=== PATIENT | male | born 1960 | race Caucasian/White ===

== ENCOUNTER 2021-01-17 15:43 | Outpatient (CLI) | payer MEDICARE, MEDICAID ==
[~2021-01-17 15:43] MED LIST: AMPH15TA2 PO; BACL10TA PO; BUPR1PAT TOP; DULO30CA52 PO; FLUT100D2 INH; FLUT1AER INH; GABA-532 PO; HYDR-4353 PO; MELO-102 PO; TRAZ-256 PO
== END 2021-01-17 23:59 | disposition home or self-care (01) ==
LOC: RT 15:43
PROVIDERS: ATTEND Internal Medicine Cardiovascular Disease
DX: R06.09 Other forms of dyspnea (principal)
CPT/HCPCS: 94010

== ENCOUNTER 2021-02-25 06:37 | Inpatient (IN) | payer MEDICARE, MEDICAID ==
[~2021-02-25] VITALS: Ht 182.9 cm; Wt 90.9 kg
[2021-02-25 07:34] LABS: BASOPHILS # (AUTO) 0.1 X10'3 (0-0.2); BASOPHILS % (AUTO) 0.9 % (0-1); EOSINOPHILS # (AUTO) 0.3 X10'3 (0-0.9); EOSINOPHILS % (AUTO) 2.5 % (0-6); HEMATOCRIT 43.5 % (42.0-52.0); LYMPHOCYTES # (AUTO) 2.3 X10'3 (1.1-4.8); LYMPHOCYTES % (AUTO) 19.6 % (21-51); MEAN CORPUSCULAR HEMOGLOBIN 29.7 PG (27.0-31.0); MEAN CORPUSCULAR HGB CONC 34.4 g/dL (33.0-36.5); MEAN CORPUSCULAR VOLUME 86.3 FL (78-98); MEAN PLATELET VOLUME 7.4 FL (7.4-10.4); MONOCYTES # (AUTO) 1.5 X10'3 (0-0.9); MONOCYTES % (AUTO) 12.4 % (2-12); NEUTROPHILS # (AUTO) 7.6 X10'3 (1.8-7.7); NEUTROPHILS % (AUTO) 64.6 % (42-75); PLATELET COUNT 391 X10'3 (140-440); RED BLOOD COUNT 5.04 X10'6 (4.70-6.10); RED CELL DISTRIBUTION WIDTH 13.1 % (11.5-14.5); WHITE BLOOD COUNT 11.8 X10'3 (4.5-11.0)
[2021-02-25 07:47] LABS: D-DIMER 1.02 MG/L FEU (0-0.50)
[2021-02-25 07:56] LABS: ALANINE AMINOTRANSFERASE 40 U/L (12-78); ALBUMIN 3.8 G/DL (3.4-5.0); ALBUMIN/GLOBULIN RATIO 1.2 (1.1-1.5); ALKALINE PHOSPHATASE 78 IU/L (46-116); ANION GAP 10 (8-16); ASPARTATE AMINO TRANSFERASE 38 U/L (10-37); BILIRUBIN,TOTAL 0.5 MG/DL (0.1-1.0); BLOOD UREA NITROGEN 14 MG/DL (7-18); BUN/CREATININE RATIO 15.1 (5.4-32.0); CALCIUM 8.7 MG/DL (8.5-10.1); CHLORIDE 101 MMOL/L (99-107); CREATININE 0.93 MG/DL (0.60-1.10); GLUCOSE 116 MG/DL (70-104); SODIUM 135 MMOL/L (135-145); TOTAL CARBON DIOXIDE 24.3 MMOL/L (24-32); TOTAL PROTEIN 7.1 G/DL (6.4-8.2); eGFR 83 ML/MIN
--- NOTE | 2021-02-25 08:24 | NUR ---
COVID swab collected, pt was not compliant with test so poor collection sample obtained. Dr. Zhao updated.
[2021-02-25] MEDS ORDERED: normal saline 1000ml 1,000 ML IV ONE (08:50)
[2021-02-25] MEDS ORDERED: iohexol 350MG/ML 100ml bottle IV ONE ×2 (08:51→13:38)
[2021-02-25 10:12] VITALS: BP 111/68
[2021-02-25] MEDS ORDERED: regadenoson 0.4mg/5ml syringe IV ONE (12:25)
[2021-02-25] MEDS ORDERED: normal saline 1000ml 1,000 ML IV SCH (12:25)
[2021-02-25] MEDS ORDERED: magnesium Cl slow-release 64mg tablet PO PRN (12:25)
[2021-02-25] MEDS ORDERED: magnesium hydroxide 30ml (MOM) UD suspension PO PRN (12:25)
[2021-02-25] MEDS ORDERED: magnesium 2GM in 50ml NS 50 ML IV PRN (12:25)
[2021-02-25] MEDS ORDERED: diphenhydrAMINE 25mg capsule PO PRN (12:25)
[2021-02-25] MEDS ORDERED: HYDROcodone/acetaminophen 10/325mg tab PO PRN (12:25)
[2021-02-25] MEDS ORDERED: magnesium 4gm in 100ml NS 100 ML IV PRN (12:25)
[2021-02-25] MEDS ORDERED: aminophylline 250mg/10ml inj. IV PRN (12:25)
[2021-02-25] MEDS ORDERED: mag hydrox/Alum hydrox/simeth 30ml oral suspension PO PRN (12:25)
[2021-02-25] MEDS ORDERED: PERFLUTREN PROTEIN-A MICROSPHR (Optison) 0.22 MG/ML 3ML VIAL IV PRN (12:25)
[2021-02-25] MEDS ORDERED: acetaminophen 325mg tablet PO PRN ×2 (12:25)
[2021-02-25] MEDS ORDERED: metoprolol tartrate 1mg/ml inj IV PRN (12:25)
[2021-02-25] MEDS ORDERED: acetaminophen 650mg rectal suppository RC PRN (12:25)
[2021-02-25] MEDS ORDERED: morphine 2 MG/ML inj. syringe IV PRN ×2 (12:25)
[2021-02-25] MEDS ORDERED: bisacodyl 10mg suppository rectal RC PRN (12:25)
[2021-02-25] MEDS ORDERED: nitroGLYCERIN 0.4mg SUBLingual tab SL PRN (12:25)
[2021-02-25] MEDS ORDERED: potassium Cl 20 mEq SR tablet PO PRN ×2 (12:25)
[2021-02-25] MEDS ORDERED: potassium CL 10mEq/100ml bag 100 ML IV PRN (12:25)
[2021-02-25] MEDS ORDERED: HYDROcodone/acetaminophen 5mg/325mg tablet PO PRN (12:25)
[2021-02-25] MEDS ORDERED: DEXT5TAB2 PO (12:37)
[2021-02-25] MEDS ORDERED: FLUT16SP26 NS (12:37)
[2021-02-25] MEDS ORDERED: BUPR150F3 PO (12:37)
[2021-02-25 13:28] LABS: HEMOGLOBIN A1C 5.7 % (4.5-6.2)
[2021-02-25 13:37] LABS: ETHANOL < 0.010 GM/DL (0.0-0.010)
[2021-02-25] MEDS ORDERED: docusate sod 100mg capsule PO SCH (20:00)
[2021-02-25] MEDS ORDERED: heparin, porcine 5000 units/ml vial SQ SCH (20:00)
[2021-02-25] MEDS ORDERED: K and/or MAG REPLACEMENT MC SCH (20:00)
== END 2021-02-25 12:54 | disposition left against medical advice (07) | DRG 312 ==
LOC: ER 06:38 → ED HOLD 12:30
PROVIDERS: ADMIT Family Medicine; ATTEND Family Medicine
PROC: B32T1ZZ Computerized Tomography (CT Scan) of Left Pulmonary Artery using Low Osmolar Contrast (ICD-10-PCS; principal; 2021-02-25)
PROC: B3201ZZ Computerized Tomography (CT Scan) of Thoracic Aorta using Low Osmolar Contrast (ICD-10-PCS; 2021-02-25)
PROC: B32S1ZZ Computerized Tomography (CT Scan) of Right Pulmonary Artery using Low Osmolar Contrast (ICD-10-PCS; 2021-02-25)
DX: R55 Syncope and collapse (principal); F90.9 Attention-deficit hyperactivity disorder, unspecified type; G47.00 Insomnia, unspecified; Z53.29 Procedure and treatment not carried out because of patient's decision for other reasons; Z20.822 Contact with and (suspected) exposure to COVID-19; S00.81XA Abrasion of other part of head, initial encounter; W18.39XA Other fall on same level, initial encounter; G89.4 Chronic pain syndrome; M79.18 Myalgia, other site; R00.1 Bradycardia, unspecified; Z83.3 Family history of diabetes mellitus; Z79.899 Other long term (current) drug therapy; Y93.89 Activity, other specified; Y92.89 Other specified places as the place of occurrence of the external cause; Y99.8 Other external cause status
CPT/HCPCS: 36415; 70450; 71045; 71275; 80053; 80320; 83036; 83880; 84443; 84484; 85025; 85379; 85610; 87635; 93005; 96360; 99285; C9803; G0378; J7030; Q9967

== ENCOUNTER 2021-02-27 00:41 | Emergency (ER) | payer MEDICARE, MEDICAID ==
[~2021-02-27 00:41] MED LIST changes: -AMPH15TA2 PO; -BACL10TA PO; +BUPR150F3 PO; -BUPR1PAT TOP; +DEXT5TAB2 PO; -DULO30CA52 PO; -FLUT100D2 INH; +FLUT16SP26 NS; -GABA-532 PO; -HYDR-4353 PO; -MELO-102 PO
== END 2021-02-27 00:57 | disposition left against medical advice (07) ==
LOC: ER 00:41
DX: Z53.21 Procedure and treatment not carried out due to patient leaving prior to being seen by health care provider (principal)

== ENCOUNTER 2023-02-13 16:37 | Emergency (ER) | payer MEDICAID, MEDICARE ==
[~2023-02-13] VITALS: Ht 182.9 cm; Wt 86.6 kg
[~2023-02-13 16:37] MED LIST changes: +CARV3.12 PO
[2023-02-13 17:42] VITALS: BP 141/68; PULSE 76; RESP 18; TEMP 98; O2SAT 98
== END 2023-02-13 18:04 | disposition home or self-care (01) ==
LOC: ER 16:37
DX: M16.12 Unilateral primary osteoarthritis, left hip (principal); M25.552 Pain in left hip; Z79.899 Other long term (current) drug therapy; Z87.891 Personal history of nicotine dependence
CPT/HCPCS: 73502; 99283